=== PATIENT | male | born 1950 | race African-American/Black ===

== ENCOUNTER 2021-12-22 00:40 | Emergency (ER) | payer OTHER ==
[2021-12-22 01:31] LABS: ALT (SGPT) 23 U/L (8-55); AST (SGOT) 22 U/L (5-34); Alkaline Phosphatase 71 U/L (40-110); Anion Gap 17 mmol/L (10-20); BUN (Urea Nitrogen) 26 mg/dL (8.4-25.7); Bilirubin, Total 0.4 mg/dL (0.2-1.2); Calc. Creatinine Clearance 0 mL/min (70-130); Calcium 8.9 mg/dL (7.8-10.44); Carbon Dioxide 22 mmol/L (23-31); Chloride 102 mmol/L (98-107); Globulin 3.5 g/dL (2.4-3.5); Glucose 93 mg/dL (80-115); Lipase 48 U/L (8-78); Potassium 4.2 mmol/L (3.5-5.1); Protein, Total 7.5 g/dL (5.8-8.1); Sodium 137 mmol/L (136-145)
[2021-12-22 02:00] LABS: Hemoglobin 12.2 g/dL (14.0-18.0); Mean Corpuscular HGB CONC 29.2 g/dL (32.0-36.0); Mean Corpuscular Volume 82.4 fL (78.0-98.0); Mean Platelet Volume 9.3 fL (7.4-10.4); Platelet Count 183 thou/uL (130-400); RBC Distribution Width 13.7 % (11.5-14.5); Red Blood Cell (RBC) Count 5.08 mill/uL (4.70-6.10); White Blood Cell (WBC) Count 5.8 thou/uL (4.8-10.8)
[2021-12-22 02:01] LABS: #Basophils 0.1 thou/uL (0.0-0.2); #Eosinphils 0.1 thou/uL (0.0-0.7); #Lymphocytes 1.1 thou/uL (1.20-3.40); #Monocytes 0.5 thou/uL (0.11-0.59); #Neutrophils 4.1 thou/uL (1.40-6.50); %Basophils 1.2 % (0.0-1.0); %Eosinophils 1.5 % (0.0-10.0); %Monocytes 8.3 % (0.0-10.0)
[2021-12-22 02:48] LABS: SARS-CoV-2 NAA Rapid Test DETECTED (NotDetected)
[2021-12-22] MEDS ORDERED: Iopamidol 370 76% 100 ML VIAL ONE (09:00)
== END 2021-12-22 12:52 ==
LOC: NAV ERS 00:40
DX: U07.1 COVID-19 (principal); R07.9 Chest pain, unspecified; I11.0 Hypertensive heart disease with heart failure; I50.9 Heart failure, unspecified; E11.42 Type 2 diabetes mellitus with diabetic polyneuropathy; Z79.82 Long term (current) use of aspirin; Z79.84 Long term (current) use of oral hypoglycemic drugs; Z79.899 Other long term (current) drug therapy
CPT/HCPCS: 36415; 71045; 71275; 80053; 83690; 83880; 84484; 85025; 87040; 93005; Q9967; U0002